=== PATIENT | male | born 1950 | race Caucasian/White ===

== ENCOUNTER 2017-12-29 08:02 | Day surgery (SDC) | payer MEDICARE, OTHER ==
[~2017-12-29 08:02] MED LIST: KETOROLAC TROMETHAMINE 0.45% 4 DROP/0.4 ML DROPERETTE OS PRN
[2017-12-29] MEDS ORDERED: EPINEPHRINE INJ/PF 1 MG/1 ML AMPULE ONE (08:53)
[2017-12-29] MEDS ORDERED: CHONDR SU A NA/HYALUR INTRAOC KIT (SURGICARE) ONE (08:53)
[2017-12-29] MEDS ORDERED: LIDOCAINE 1% INJ-PF (10 MG/ML) 30 ML SDV ONE (08:53)
[2017-12-29] MEDS: BESIFLOXACIN HCL 0.6% OPH SUSP 5 ML BOTTLE OS PRN ×3 (09:16→10:12)
[2017-12-29] MEDS: CYCLOPENTOLATE 0.2%/PHENYLEPHRINE 1% OPH SOLN 2 ML OS PRN ×3 (09:16→09:36)
[2017-12-29] MEDS: TROPICAMIDE 1% OPH SOLN 3 ML OS PRN ×3 (09:16→09:36)
[2017-12-29] MEDS: TETRACAINE HCL 0.5% OPH SOLN 2 ML OS PRN ×3 (09:17→09:49)
[2017-12-29] MEDS ORDERED: MIDAZOLAM 2 MG/2 ML INJ ONE (09:39)
[2017-12-29] MEDS ORDERED: FENTANYL CITRATE INJ/PF 100 MCG/2 ML AMPUL ONE (09:39)
--- NOTE | 2017-12-29 14:50 | [facility] OPERATIVE REPORT E ---
[facility] Operative Report NAME: HOA BURNS AGE: 67Y DATE OF SURGERY: 12/29/2017 ROOM: PREOPERATIVE DIAGNOSIS: CATARACT, LEFT EYE. POSTOPERATIVE DIAGNOSIS: CATARACT, LEFT EYE. OPERATION: Cataract extraction with toric IOL of the left eye. SURGEON: ELIZABETH AGUILAR M.D. ANESTHESIA: Topical. PROCEDURE: After obtaining appropriate consent, the patient's left eye was prepped and draped in sterile fashion as well as the surgeon in a sterile manner and cataract surgery was started. First a paracentesis blade was used to make a side-port incision. Viscoelastic was used to inflate the anterior chamber. Next a 2.4 mm incision was made with a 2.4 mm blade, clear corneal temporally. A continuous capsulorrhexis was made using a cystotome and Utrata forceps. Following this hydrodissection was carried out to make the lens fully loose and mobile and it was rotated 90 degrees. Following this, a ifzdza-vuz-wnwgnap technique was used to phacoemulsify the lens with a CDE of 7.70. The remaining cortex was removed with irrigation/aspiration. Provisc was instilled into the capsular bag to inflate the bag. A 20.0 SN6AT6 lens rotated to 1 [address]. The remaining viscoelastic material was removed with irrigation/aspiration. Following this, the incision was found to be watertight. Besivance was instilled into the eye and a protective shield was placed over the eye. The patient returned to the postoperative recovery in stable condition. DICTATING PHYSICIAN: ELIZABETH AGUILAR M.D. 1209M [id number] PHY#: [id number] ID: [id number] JOB#: [id number] ACCT: [id number] cc:ELIZABETH AGUILAR M.D. >
--- NOTE | 2017-12-29 14:51 | [facility] DISCHARGE SUMMARY E ---
[facility] Discharge Summary NAME: HOA BURNS AGE: 67Y ADMITTED: 12/29/2017 DISCHARGED: 12/29/2017 DIAGNOSIS: Cataract, left eye. SUMMARY: This is a 67-year-old male who underwent cataract extraction with toric IOL of the left eye. He underwent surgery because he was having difficulty seeing small print. DISCHARGE INSTRUCTIONS: He should be on a regular diet, no bending at his waist, and no heavy lifting. He should use his Besivance, Ilevro, and Durezol at 3 p.m. and 8 p.m. and sleep with a rigid shield. I will see him for his 1-day postoperative tomorrow. DICTATING PHYSICIAN: ELIZABETH AGUILAR M.D. 1209M [id number] PHY#: [id number] ID: [id number] JOB#: [id number] ACCT: [id number] cc:ELIZABETH AGUILAR M.D. >
== END 2017-12-29 10:50 | disposition home or self-care (01) ==
LOC: SC 08:02
PROVIDERS: ATTEND Internal Medicine
DX: H25.13 Age-related nuclear cataract, bilateral (principal); H40.013 Open angle with borderline findings, low risk, bilateral; H04.123 Dry eye syndrome of bilateral lacrimal glands; H35.373 Puckering of macula, bilateral; I10 Essential (primary) hypertension; E78.00 Pure hypercholesterolemia, unspecified; J45.909 Unspecified asthma, uncomplicated; Z79.899 Other long term (current) drug therapy; G47.30 Sleep apnea, unspecified
CPT/HCPCS: 66984; V2787; J2250; J3490 ×2; A9270; J0171; 142; J3010

== ENCOUNTER 2018-01-28 09:25 | Day surgery (SDC) | payer MEDICARE, OTHER ==
[~2018-01-28 09:25] MED LIST changes: +KETOROLAC TROMETHAMINE 0.45% 4 DROP/0.4 ML DROPERETTE OD PRN; -KETOROLAC TROMETHAMINE 0.45% 4 DROP/0.4 ML DROPERETTE OS PRN
[2018-01-28] MEDS ORDERED: EPINEPHRINE INJ/PF 1 MG/1 ML AMPULE ONE (10:07)
[2018-01-28] MEDS ORDERED: LIDOCAINE 1% INJ-PF (10 MG/ML) 30 ML SDV ONE (10:08)
[2018-01-28] MEDS ORDERED: CHONDR SU A NA/HYALUR INTRAOC KIT (SURGICARE) ONE (10:08)
[2018-01-28] MEDS: BESIFLOXACIN HCL 0.6% OPH SUSP 5 ML BOTTLE OD PRN ×4 (10:17→11:42)
[2018-01-28] MEDS: CYCLOPENTOLATE 0.2%/PHENYLEPHRINE 1% OPH SOLN 2 ML OD PRN ×3 (10:17→10:37)
[2018-01-28] MEDS: TROPICAMIDE 1% OPH SOLN 3 ML OD PRN ×3 (10:17→10:37)
[2018-01-28] MEDS: TETRACAINE HCL 0.5% OPH SOLN 2 ML OD PRN ×3 (10:18→11:03)
[2018-01-28] MEDS ORDERED: FENTANYL CITRATE INJ/PF 100 MCG/2 ML AMPUL ONE (10:45)
[2018-01-28] MEDS ORDERED: MIDAZOLAM 2 MG/2 ML INJ ONE (10:45)
[2018-01-28] MEDS ORDERED: POVIDONE-IODINE 5% OPH PREP SOLN 30 ML ONE (11:25)
--- NOTE | 2018-01-28 19:40 | [facility] DISCHARGE SUMMARY E ---
[facility] Discharge Summary NAME: HOA BURNS AGE: 67Y ADMITTED: 01/28/2018 DISCHARGED: 01/28/2018 HOSPITAL COURSE: This is a 67-year-old patient who underwent cataract extraction with Toric IOL of the right eye. DIAGNOSIS: CATARACT, RIGHT EYE. He underwent surgery because he was having trouble seeing words on the television. DISCHARGE INSTRUCTIONS: He should is to be on a regular diet. No bending at his waist, no heavy lifting. He should use her Besivance, Ilevro, and Durezol at 3 p.m. and 8 p.m. and sleep with a rigid shield. I will see him for his 1 day postoperative tomorrow. DICTATING PHYSICIAN: ELIZABETH AGUILAR M.D. 5020M 1935 PHY#: [id number] ID: [id number] JOB#: [id number] ACCT: [id number] cc:ELIZABETH AGUILAR M.D. >
--- NOTE | 2018-01-28 19:40 | [facility] OPERATIVE REPORT E ---
[facility] Operative Report NAME: HOA BURNS AGE: 67Y DATE OF SURGERY: 01/28/2018 ROOM: PREOPERATIVE DIAGNOSIS: CATARACT, RIGHT EYE. POSTOPERATIVE DIAGNOSIS: CATARACT, RIGHT EYE. OPERATION: Cataract extraction with insertion of a Toric IOL of the right eye. SURGEON: ELIZABETH AGUILAR M.D. ANESTHESIA: Topical. PROCEDURE: After obtaining appropriate consent, the patient's right eye was prepped and draped in sterile fashion as well as the surgeon in a sterile manner and cataract surgery was started. First a paracentesis blade was used to make a side-port incision. Viscoelastic was used to inflate the anterior chamber. Next a 2.4 mm incision was made with a 2.4 mm blade, clear corneal temporally. A continuous capsulorrhexis was made using a cystotome and Utrata forceps. Following this hydrodissection was carried out to make the lens fully loose and mobile and it was rotated to 6 degrees. Following this, a zpbavd-wiu-kmiachf technique was used to phacoemulsify the lens with a CDE of 4.94. The remaining cortex was removed with irrigation/aspiration. Provisc was instilled into the capsular bag to inflate the bag. A SN6AT5, 18.0 diopter lens was placed at 6 degrees. The remaining viscoelastic material was removed with irrigation/aspiration. Following this, the incision was found to be watertight. Besivance was instilled into the eye and a protective shield was placed over the eye. The patient returned to the postoperative recovery in stable condition. DICTATING PHYSICIAN: ELIZABETH AGUILAR M.D. 5020M 1934 PHY#: [id number] ID: [id number] JOB#: [id number] ACCT: [id number] cc:ELIZABETH AGUILAR M.D. > [facility]
== END 2018-01-28 12:37 | disposition home or self-care (01) ==
LOC: SC 09:25
PROVIDERS: ATTEND Internal Medicine
DX: H25.11 Age-related nuclear cataract, right eye (principal); Z96.1 Presence of intraocular lens; H43.813 Vitreous degeneration, bilateral; J45.909 Unspecified asthma, uncomplicated; I10 Essential (primary) hypertension; G47.30 Sleep apnea, unspecified; Z79.82 Long term (current) use of aspirin; Z79.899 Other long term (current) drug therapy
CPT/HCPCS: 66984; V2787; J2250; J3490 ×3; A9270; J0171; J3010; 142